=== PATIENT | male | born 1960 | race Caucasian/White ===

== ENCOUNTER 2020-02-23 17:25 | Emergency (ER) | payer OTHER ==
[~2020-02-23] VITALS: Ht 177.8 cm; Wt 86.2 kg
== END 2020-02-24 00:22 | disposition short-term general hospital (02) ==
LOC: ED 17:25
DX: S22.41XA Multiple fractures of ribs, right side, initial encounter for closed fracture (principal); T14.90XA Injury, unspecified, initial encounter; V29.9XXA Motorcycle rider (driver) (passenger) injured in unspecified traffic accident, initial encounter; Y93.89 Activity, other specified; Y92.89 Other specified places as the place of occurrence of the external cause; Y99.8 Other external cause status